=== PATIENT | male | born 1970 | race Caucasian/White ===

== ENCOUNTER 2018-02-26 15:25 | Emergency (ER) | payer OTHER ==
[2018-02-26 16:04] LABS: BASO % 0.3 % (0.0-1.0); EOS # 0.1 10^3/uL (0.0-0.50); EOS % 0.8 % (0.0-3.0); HEMATOCRIT 43.3 % (42.0-52.0); HEMOGLOBIN 15.4 g/dl (13.5-17.5); IMMATURE GRANULOCYTE % 0.3 % (0-3.0); LYMPH % 31.5 % (24.0-44.0); MEAN CORPUSCULAR HEMOGLOBIN 33.3 pg (27.0-33.0); MEAN CORPUSCULAR HGB CONC 35.6 g/dl (32.0-36.5); MEAN CORPUSCULAR VOLUME 93.7 fl (80.0-96.0); MONO # 0.5 10^3/uL (0.0-0.8); NEUTROPHILS # 3.9 10^3/uL (1.8-7.7); NEUTROPHILS % 60.1 % (36.0-66.0); PLATELET COUNT, AUTOMATED 171 10^3/uL (150-450); RED BLOOD COUNT 4.62 10^6/uL (4.30-6.10); RED CELL DISTRIBUTION WIDTH 12.8 % (11.5-14.5); WHITE BLOOD COUNT 6.4 10^3/uL (4.0-10.0)
[2018-02-26] MEDS: MORPHINE 4 MG/ML 1ML VIAL/SYRINGE (J2270) IV ×2 (16:07→17:04)
[2018-02-26] MEDS: NS 1,000 ML IV (16:07)
[2018-02-26] MEDS: ONDANSETRON 4MG/2ML VIAL (J2405) IV (16:07)
[2018-02-26 16:28] LABS: ALBUMIN 4.1 GM/DL (3.2-5.2); ALBUMIN/GLOBULIN RATIO 1.37 (1.00-1.93); ALKALINE PHOSPHATASE 71 U/L (45-117); ALT/SGPT 85 U/L (12-78); ANION GAP 6 MEQ/L (8-16); AST/SGOT 35 U/L (7-37); BILIRUBIN,DIRECT 0.1 MG/DL (0.0-0.2); BILIRUBIN,TOTAL 0.5 MG/DL (0.2-1.0); BLOOD UREA NITROGEN 15 MG/DL (7-18); CALCIUM LEVEL 8.8 MG/DL (8.5-10.1); CARBON DIOXIDE LEVEL 31 MEQ/L (21-32); CHLORIDE LEVEL 105 MEQ/L (98-107); CREATININE FOR GFR 1.37 MG/DL (0.70-1.30); GLOMERULAR FILTRATION RATE 59.6 (>60); GLUCOSE, FASTING 122 MG/DL (70-100); POTASSIUM SERUM 3.4 MEQ/L (3.5-5.1); SODIUM LEVEL 142 MEQ/L (136-145); TOTAL PROTEIN 7.1 GM/DL (6.4-8.2)
[2018-02-26] MEDS: KETOROLAC 30 MG/ML VIAL (J1885) IV (17:13)
[2018-02-26 18:03] LABS: KETONE, URINE AUTO RFX NEGATIVE (NEGATIVE); LEUKOCYTE ESTERASE UR AUTO RFX NEGATIVE (NEGATIVE); MUCUS, URINE RFX SMALL (NEGATIVE); NITRITE, URINE AUTO RFX NEGATIVE (NEGATIVE); RBC, URINE AUTO RFX TNTC /HPF (0-3); SPECIFIC GRAVITY UR AUTO RFX 1.014 (1.002-1.035); SQUAM EPITHELIAL CELL UR AURFX 0 /HPF (0-6); WBC, URINE AUTO RFX 2 /HPF (0-3)
== END 2018-02-26 18:01 | disposition home or self-care (01) ==
LOC: M ED 15:25
DX: N20.1 Calculus of ureter (principal); N13.30 Unspecified hydronephrosis; N20.0 Calculus of kidney; I10 Essential (primary) hypertension
CPT/HCPCS: J2270

== ENCOUNTER → 2018-05-09 | Outpatient (CLI) | payer OTHER ==
[2018-05-09 14:10] LABS: APPEARANCE, URINE CLEAR (CLEAR); BACTERIA, URINE AUTO NEGATIVE (NEGATIVE); BILIRUBIN, URINE AUTO NEGATIVE (NEGATIVE); BLOOD, URINE BLOOD NEGATIVE (NEGATIVE); COLOR, URINE STRAW (YELLOW); GLUCOSE, URINE (UA) AUTO NEGATIVE (NEGATIVE); KETONE, URINE AUTO NEGATIVE (NEGATIVE); LEUKOCYTE ESTERASE, URINE AUTO NEGATIVE (NEGATIVE); MUCUS, URINE SMALL (NEGATIVE); NITRITE, URINE AUTO NEGATIVE (NEGATIVE); PROTEIN, URINE AUTO NEGATIVE (NEGATIVE); RBC, URINE AUTO 0 /HPF (0-3); SPECIFIC GRAVITY URINE AUTO 1.003 (1.002-1.035); SQUAMOUS EPITHELIAL CELL UR AU 0 /HPF (0-6); UROBILINOGEN, URINE AUTO 0.2 mg/dL (0.0-2.0); WBC, URINE AUTO 0 /HPF (0-3)
[2018-05-18 00:05] LABS: COMMENT Note: (.); Ca Ox Monohydrate 75 % (.)
== END ==
LOC: M SMT 11:12
DX: N20.0 Calculus of kidney (principal)
CPT/HCPCS: 81001

== ENCOUNTER → 2018-08-12 | Outpatient (CLI) | payer OTHER | LOC: M SMT 13:24 | DX: N20.0 Calculus of kidney (principal) ==

== ENCOUNTER → 2019-02-12 | Outpatient (CLI) | payer OTHER ==
[~2019-02-12] MED LIST: CIPR-249 PO; DRIS50003 PO; FLOM0.4C39 PO; KETO10TAB PO; MULT1TAB10 PO; PERC5TAB12 PO; POTA75TA PO; [UNRECOGNIZED DRUG - OTHER] PO
--- NOTE | 2019-02-12 14:18 | REP ---
REASON: History of renal calculi. Comparison examination is 08/12/2018, which is the latest prior. FINDINGS: KUB shows the intestinal gas pattern to be nonspecific. The organ silhouettes insofar as delineated are unremarkable. There is no evidence of free intraperitoneal air. Calcification see superimposed over the left nephric silhouette again noted and allowing for the differences in the technical factors between the examinations, they do not appear to be significantly changed. No new renal calcifications are noted. Calcifications seen previously superimposed over the right nephric silhouette are difficult to evaluate secondary to overlying intestinal content. There is no change in the osseous structures. IMPRESSION: Likely no significant change from the prior exam with bilateral renal calculi. If clinically relevant obtain noncontrast-enhanced stone protocol CT of the abdomen and pelvis so as it can be compared to the prior examination of 02/26/2018. Electronically Signed by Sanford Sweeney DO 02/12/2019 05:02 P
== END ==
LOC: M SMT 13:48
PROVIDERS: ATTEND Nurse Practitioner Family
DX: N20.0 Calculus of kidney (principal)
CPT/HCPCS: 74018; G0463

== ENCOUNTER 2021-10-23 14:24 | Emergency (ER) | payer OTHER ==
[~2021-10-23] VITALS: Ht 177.8 cm; Wt 118.2 kg
[2021-10-23] MEDS ORDERED: ONDANSETRON 4MG/2ML VIAL IV ONE (15:05)
[2021-10-23] MEDS ORDERED: KETOROLAC 30 MG/ML 1ML VIAL IV ONE (15:05)
[2021-10-23] MEDS ORDERED: NS 1,000 ML IV ONE (15:05)
[2021-10-23 15:47] LABS: BASO % 0.4 % (0.0-1.0); EOS % 0.3 % (0.0-3.0); HEMOGLOBIN 15.4 g/dl (13.5-17.5); LYMPH # 1.2 10^3/uL (1.5-5.0); LYMPH % 11.7 % (24.0-44.0); MEAN CORPUSCULAR HEMOGLOBIN 33.5 pg (27.0-33.0); MEAN CORPUSCULAR VOLUME 95.7 fl (80.0-96.0); MONO # 0.6 10^3/uL (0.0-0.8); MONO % 5.8 % (2.0-8.0); NEUTROPHILS # 7.9 10^3/uL (1.5-8.5); NEUTROPHILS % 81.2 % (36.0-66.0); PLATELET COUNT, AUTOMATED 161 10^3/uL (150-450); WHITE BLOOD COUNT 9.8 10^3/uL (4.0-10.0)
[2021-10-23 16:15] LABS: ALBUMIN 4.2 GM/DL (3.2-5.2); BILIRUBIN,DIRECT 0.2 MG/DL (0.0-0.2); BILIRUBIN,TOTAL 0.6 MG/DL (0.2-1.0); CALCIUM LEVEL 9.7 MG/DL (8.5-10.1); CREATININE FOR GFR 1.73 MG/DL (0.70-1.30); GLOMERULAR FILTRATION RATE 44.7 (>56); POTASSIUM SERUM 3.9 MEQ/L (3.5-5.1); TOTAL PROTEIN 6.6 GM/DL (6.4-8.2)
[2021-10-23 18:22] VITALS: BP 148/87
== END 2021-10-23 18:23 | disposition home or self-care (01) ==
LOC: M ED 14:24
DX: N20.1 Calculus of ureter (principal)
CPT/HCPCS: 74176; 80048; 80076; 81001; 83690; 85025; 96361; 96374; 96375; 99284; J1885; J2405

== ENCOUNTER → 2023-06-02 | Outpatient (CLI) | payer OTHER | LOC: M RAD 13:55 | PROVIDERS: ATTEND Internal Medicine | DX: M50.322 Other cervical disc degeneration at C5-C6 level (principal); M50.323 Other cervical disc degeneration at C6-C7 level; M99.71 Connective tissue and disc stenosis of intervertebral foramina of cervical region ==

== ENCOUNTER 2023-09-18 08:41 | Day surgery (SDC) | payer OTHER ==
[~2023-09-18] VITALS: Ht 177.8 cm; Wt 112.5 kg
[~2023-09-18 08:41] MED LIST changes: +CLAR10CA3 PO; +CRAN450T4 PO; +METH-1165 PO; +MULT-90 PO; +NS 1,000 ML IV ONE; +POTA-165 PO; +ROSU10TA6 PO; +TOPR25TA PO; +TURM1CAP5 PO; +VITA100018 PO; +VITA100093 PO
[2023-09-18] MEDS ORDERED: propofoL 200 MG/20 ML VIAL As Ordered ONE ×2 (09:03→09:14)
[2023-09-18] MEDS ORDERED: GLYCOPYRROLATE INJ 0.2 MG/ML 2 ML VIAL As Ordered ONE (10:30)
[2023-09-18 11:08] VITALS: BP 133/71; TEMP 97.2; O2SAT 96
== END 2023-09-18 11:22 | disposition home or self-care (01) ==
LOC: M OPP 08:41
PROVIDERS: ATTEND Internal Medicine Gastroenterology
DX: Z12.11 Encounter for screening for malignant neoplasm of colon (principal); K64.8 Other hemorrhoids; I10 Essential (primary) hypertension; E78.5 Hyperlipidemia, unspecified; G47.30 Sleep apnea, unspecified; Z79.899 Other long term (current) drug therapy; Z83.3 Family history of diabetes mellitus; Z83.49 Family history of other endocrine, nutritional and metabolic diseases

== ENCOUNTER → 2024-10-10 | Outpatient (CLI) | payer OTHER ==
[~2024-10-10] MED LIST changes: -NS 1,000 ML IV ONE; -ROSU10TA6 PO; +ROSU10TA61 PO
== END ==
LOC: M PLAIMG 12:45
PROVIDERS: ATTEND Internal Medicine Pulmonary Disease
DX: N20.0 Calculus of kidney (principal); R06.02 Shortness of breath

== ENCOUNTER → 2024-10-28 | Outpatient (CLI) | payer OTHER ==
[~2024-10-28] MED LIST changes: +METHACHOLINE KIT (6 VIAL.NEB PREMIX) INH ONE
== END ==
LOC: M CARPUL 07:53
PROVIDERS: ATTEND Internal Medicine Pulmonary Disease
DX: R06.02 Shortness of breath (principal)
CPT/HCPCS: 94070; 95070; J7674